=== PATIENT | female | born 1990 | race Caucasian/White ===

== ENCOUNTER 2022-09-23 10:21 | Outpatient (OUT) | payer MEDICARE, SELFPAY ==
[2022-09-23 10:46] LABS: Basophils Percent Auto 0.1 % (0.2-2.0); Eosinophils Absolute Auto 0.1 10^3/uL (0.0-0.7); Eosinophils Percent Auto 0.6 % (0.9-7.0); Hematocrit 43.1 % (36.0-48.0); Hemoglobin 13.6 g/dL (12.0-16.0); Immature Granulocytes Abs Auto 0.03 10^3/uL (0.00-0.03); Immature Granulocytes Pct Auto 0.3 % (0.0-0.5); Lymphocytes Absolute Auto 2.2 10^3/uL (1.2-3.8); Mean Corpuscular HGB Conc 31.6 g/dL (29.9-35.2); Mean Corpuscular Volume 85.5 fL (81.0-99.0); Mean Platelet Volume 9.9 fL (9.5-13.5); Monocytes Absolute Auto 0.6 10^3/uL (0.3-0.8); Monocytes Percent Auto 6.4 % (1.7-12.0); Neutrophils Absolute Auto 5.7 10^3/uL (1.4-6.5); Neutrophils Percent Auto 66.6 % (43.0-75.0); Platelet Count 309 10^3/uL (150-450); Red Blood Count 5.04 10^6/uL (4.20-5.40); Red Cell Distribution Width 13.5 % (11.0-15.0); White Blood Count 8.6 10^3/uL (4.0-11.0)
[2022-09-23 13:06] LABS: Alanine Aminotransferase 41 U/L (14-59); Albumin Globulin Ratio 0.9; Albumin Level 4.1 g/dL (3.4-5.0); Alkaline Phosphatase 75 U/L (46-116); Anion Gap 12.9; Aspartate Amino Transferase 26 U/L (15-37); BUN Creatinine Ratio 9.7; Bilirubin Total 0.8 mg/dL (0.2-1.0); Calcium 9.3 mg/dL (8.5-10.1); Carbon Dioxide 24.7 mmol/L (21.0-32.0); Chloride 104 mmol/L (98-107); Chol HDL Ratio 2.6; Cholesterol 97 mg/dL (<=200); Estimated GFR (African America >60 (>=60); Estimated GFR (Non-African Ame 56 (>=60); Free T3 2.42 pg/mL (2.18-3.98); Globulin 4.5 g/dL; Glucose 103 mg/dL (74-106); HDL Cholesterol 37 mg/dL (40-60); Potassium 3.6 mmol/L (3.5-5.1); Sodium 138 mmol/L (136-145); Thyroid Stimulating Hormone 4.147 uIU/mL (0.358-3.740); Total Protein 8.6 g/dL (6.4-8.2); Triglycerides 44 mg/dL (<=150); VLDL CHOLESTEROL 8.8 mg/dL
[2022-09-23 15:32] LABS: Estimated Average Glucose 108 mg/dL; Glycohemoglobin A1C 5.4 % (4.5-6.2)
[2022-09-24 12:09] LABS: Insulin 31.7 uIU/mL (2.6-24.9)
== END 2022-09-23 10:22 | disposition home or self-care (01) ==
LOC: LAB 10:23
PROVIDERS: PCP Family Medicine; Visit Provider Family Medicine
DX: Z00.00 Encounter for general adult medical examination without abnormal findings (principal)
CPT/HCPCS: 36415; 80053; 80061; 83036; 83525; 84436; 84443; 84481; 85025

== ENCOUNTER 2024-07-02 08:17 | Outpatient (RCR) | payer MEDICARE, MEDICAID, SELFPAY ==
[2024-07-02 09:48] LABS: HCG Quantitative 13837 mIU/mL
== END 2024-07-07 09:54 | disposition home or self-care (01) ==
LOC: LAB 08:17
PROVIDERS: PCP Family Medicine; Visit Provider Obstetrics & Gynecology
DX: N92.6 Irregular menstruation, unspecified (principal)
CPT/HCPCS: 36415; 84702

== ENCOUNTER 2024-07-02 14:54 | Outpatient (OUT) | payer MEDICARE, MEDICAID, SELFPAY ==
--- NOTE | 2024-07-02 15:00 | US_ITS ---
The [address] [address] Patient Name: LUIS ALBERTO VANCE MRN: [id number] date: 1990 Sex: F Assigned Patient Location: [place] Current Patient Location: Accession/Order Number: [id number] Exam Date: 07/05/2024 12:24 Report Date: 07/05/2024 12:30 At the request of: TERI MORA DO Procedure: US OB cervical length OB ultrasound. Reason for exam: Anatomy scan. COMPARISON: None. TECHNIQUE: Transabdominal imaging of the gravid uterus was obtained. FINDINGS: Single live intrauterine measuring 35 weeks 6 days by anatomic measurements YOLA is 07/31/2024. heart rate 1 30 bpm. Estimated weight is 2527 g. LAITH is normal at 18.31 cm. Placenta position is posterior without focal abnormality. Cervix measures 3.5 cm without funneling. A small amount of fluid is seen within the cervical canal. Anatomy evaluation is limited due to advanced age. The brain structures were not able to be visualized.. RVOT/LVOT was not visualized. Four-chamber heart is noted. Spine appears grossly intact. Three-vessel cord is noted. Kidneys appear unremarkable. 4 extremities are seen. Nasal bone is present. US/US OB anatomy IMPRESSION: Suboptimal anatomy scan due to advanced age. Please note that the brain structures as well as the outflow tracts of the heart not able to be visualized. Single live intrauterine 35 weeks 6 days by anatomic measurements YOLA 07/31/2024. Normal LAITH. Cervical length measures 3.5 cm without funneling. Impression dictated by: Rodger Worthington Jr., D.O. 07/05/2024 12:30 PM Dictation Location: [place] [address] Electronically authenticated by: [id number] Y Date: 07/05/2024 12:30
--- NOTE | 2024-07-02 15:09 | US_ITS ---
The [address] [address] Patient Name: LUIS ALBERTO VANCE MRN: [id number] date: 1990 Sex: F Assigned Patient Location: [place] Current Patient Location: Accession/Order Number: [id number] Exam Date: 07/05/2024 12:24 Report Date: 07/05/2024 12:30 At the request of: TERI MORA DO Procedure: US OB cervical length OB ultrasound. Reason for exam: Anatomy scan. COMPARISON: None. TECHNIQUE: Transabdominal imaging of the gravid uterus was obtained. FINDINGS: Single live intrauterine measuring 35 weeks 6 days by anatomic measurements YOLA is 07/31/2024. heart rate 1 30 bpm. Estimated weight is 2527 g. LAITH is normal at 18.31 cm. Placenta position is posterior without focal abnormality. Cervix measures 3.5 cm without funneling. A small amount of fluid is seen within the cervical canal. Anatomy evaluation is limited due to advanced age. The brain structures were not able to be visualized.. RVOT/LVOT was not visualized. Four-chamber heart is noted. Spine appears grossly intact. Three-vessel cord is noted. Kidneys appear unremarkable. 4 extremities are seen. Nasal bone is present. US/US OB cervical length IMPRESSION: Suboptimal anatomy scan due to advanced age. Please note that the brain structures as well as the outflow tracts of the heart not able to be visualized. Single live intrauterine 35 weeks 6 days by anatomic measurements YOLA 07/31/2024. Normal LAITH. Cervical length measures 3.5 cm without funneling. Impression dictated by: Rodger Worthington Jr., D.O. 07/05/2024 12:30 PM Dictation Location: [place] [address] Electronically authenticated by: [id number] Y Date: 07/05/2024 12:30
== END 2024-07-02 14:55 | disposition home or self-care (01) ==
LOC: US 14:55
PROVIDERS: PCP Family Medicine; Visit Provider Obstetrics & Gynecology
DX: Z36.89 Encounter for other specified antenatal screening (principal); Z3A.35 35 weeks gestation of pregnancy; N92.6 Irregular menstruation, unspecified
CPT/HCPCS: 76805; 76817

== ENCOUNTER 2024-07-12 07:34 | Outpatient (OUT) | payer MEDICARE, MEDICAID, SELFPAY ==
[2024-07-12 08:17] LABS: Basophils Percent Auto 0.1 % (0.2-2.0); Hemoglobin 12.4 g/dL (12.0-16.0); Immature Granulocytes Abs Auto 0.08 10^3/uL (0.00-0.03); Immature Granulocytes Pct Auto 0.6 % (0.0-0.5); Lymphocytes Absolute Auto 2.3 10^3/uL (1.2-3.8); Lymphocytes Percent Auto 18.5 % (20.5-60.0); Mean Corpuscular HGB Conc 32.6 g/dL (29.9-35.2); Mean Corpuscular Hemoglobin 27.4 pg (26.7-34.0); Mean Corpuscular Volume 83.9 fL (81.0-99.0); Mean Platelet Volume 11.6 fL (9.5-13.5); Monocytes Absolute Auto 0.7 10^3/uL (0.3-0.8); Monocytes Percent Auto 5.5 % (1.7-12.0); Neutrophils Absolute Auto 9.5 10^3/uL (1.4-6.5); Neutrophils Percent Auto 75.3 % (43.0-75.0); Platelet Count 250 10^3/uL (150-450); Red Blood Count 4.53 10^6/uL (4.20-5.40); Red Cell Distribution Width 13.8 % (11.0-15.0); White Blood Count 12.6 10^3/uL (4.0-11.0)
[2024-07-12 08:24] LABS: Estimated Average Glucose 123 mg/dL; Glycohemoglobin A1C 5.9 % (4.5-6.2)
[2024-07-12 08:34] LABS: Amphetamine Screen Urine NEGATIVE (NEGATIVE); Benzodiazepines Screen Urine NEGATIVE (NEGATIVE); Cannabinoid Screen Urine NEGATIVE (NEGATIVE); Cocaine Screen Urine NEGATIVE (NEGATIVE); Methadone Screen Urine NEGATIVE (NEGATIVE); Methamphetamines Screen Urine NEGATIVE (NEGATIVE); Opiate Screen Urine NEGATIVE (NEGATIVE); Phencyclidine Screen Urine NEGATIVE (NEGATIVE); Tricyclic Antidepressant Urine NEGATIVE (NEGATIVE)
[2024-07-12 08:35] LABS: Barbiturates Screen Urine NEGATIVE (NEGATIVE); Buprenorphine Screen Urine NEGATIVE (NEGATIVE); Oxycodone Screen Urine NEGATIVE (NEGATIVE)
[2024-07-12 09:41] LABS: Thyroid Stimulating Hormone 4.812 uIU/mL (0.358-3.740)
[2024-07-13 05:07] LABS: HIV Ab/p24 Ag Screen Non Reactive (Non Reactive)
[2024-07-13 06:12] LABS: HBsAg Screen Negative (Negative); HCV Ab Non Reactive (Non Reactive)
[2024-07-13 07:07] LABS: Rubella Antibodies, IgG 5.99 index (Immune >0.99)
[2024-07-13 11:13] LABS: Rapid Plasma Reagin, Quant Non Reactive titer (NonRea<1:1)
== END 2024-07-12 07:35 | disposition home or self-care (01) ==
LOC: LAB 07:36
PROVIDERS: PCP Family Medicine; Visit Provider Obstetrics & Gynecology
DX: Z34.01 Encounter for supervision of normal first pregnancy, first trimester (principal); N92.6 Irregular menstruation, unspecified; R82.998 Other abnormal findings in urine
CPT/HCPCS: 36415; 80307; 83036; 84443; 85025; 86592; 86762; 86803; 86850; 86900; 86901; 87086; 87340; 87389

== ENCOUNTER 2024-07-13 13:23 | Outpatient (REF) | payer MEDICARE, MEDICAID, SELFPAY | END 2024-07-13 13:24 | disposition home or self-care (01) | LOC: LAB 13:23 | PROVIDERS: PCP Family Medicine; Visit Provider Obstetrics & Gynecology | DX: Z34.93 Encounter for supervision of normal pregnancy, unspecified, third trimester (principal); Z3A.36 36 weeks gestation of pregnancy; O09.33 Supervision of pregnancy with insufficient antenatal care, third trimester | CPT/HCPCS: 87081 ==

== ENCOUNTER 2024-07-15 13:00 | Outpatient (OUT) | payer MEDICARE, MEDICAID, SELFPAY ==
--- NOTE | 2024-07-15 | US_ITS ---
[address] [address] Patient Name: LUIS ALBERTO VANCE MRN: [facility]:[id number] date: 1990 Sex: F Assigned Patient Location: [facility] Current Patient Location: [facility] Accession/Order Number: [id number] Exam Date: 07/15/2024 14:26 Report Date: 07/15/2024 14:26 At the request of: TERI MORA DO Procedure: US OB BPP w non-stress Biophysical profile. Reason for exam: Late care. COMPARISON: None. TECHNIQUE: Transabdominal imaging of the gravid uterus was obtained. FINDINGS: [employer] reports a BPP of 8 out of 8. LAITH is normal at 13 cm. heart rate 171 bpm. US/US OB BPP w non-stress IMPRESSION: BPP 8 out of 8. Impression dictated by: Rodger Worthington Jr., DPrasanthOPrasanth 07/15/2024 2:26 PM Dictation Location: [facility] Electronically authenticated by: [id number] Y Date: 07/15/2024 14:26
[2024-07-15 13:32] VITALS: BP 122/87; PULSE 114
== END 2024-07-15 14:30 | disposition home or self-care (01) ==
LOC: US 13:01 → FBC 13:02
PROVIDERS: PCP Family Medicine; Visit Provider Obstetrics & Gynecology
DX: O09.33 Supervision of pregnancy with insufficient antenatal care, third trimester (principal)
CPT/HCPCS: 76818

== ENCOUNTER 2024-07-18 05:04 | Inpatient (IN) | payer MEDICARE, MEDICAID, SELFPAY ==
[2024-07-18] VITALS (51 sets, daily range): BP systolic 111–150; BP diastolic 61–87; PULSE 70–121; TEMP 36.4–36.7
--- OUTSIDE RECORDS SUMMARY | 2024-07-18 05:08 | XMS_ITS | CCD ---
Author Organization [facility] Care Team Providers Care Human Resources Department Supervisor Name Role Phone SEBASTIAN Rader, DR CLAROS Primary Care Unavailable CARMELO ., DR ARGUELLES Consulting Vishnu RHODES ., DR ARGUELLES Attending Vishnu RHODES ., DR ARGUELLES Admitting Hyacinth Spring MD Primary Care Provider [phone] Hyacinth Cortes MD Primary Care Provider [phone] TERI SNEED Attending Unavailable TERI SNEED Attending Unavailable Allergies Allergy Classification Reported Allergen(s) Allergy Type Date of Onset Reaction(s) Facility (1 source) Latex Drug allergy (disorder) [facility] Medications Current Medications Medication Drug Class(es) Dates Sig (Normalized) Sig (Original) Blood Glucose Monitoring Suppl (D-Care Glucometer) w/Device kit (4 sources) Start: 07-13-2024 End: 07-13-2025 Blood Glucose Monitoring Suppl (D-Care Glucometer) w/Device kit Indications: Gestational diabetes mellitus (GDM), antepartum, gestational diabetes method of control unspecified , Elevated glucose tolerance test 1 kit Daily Use four times daily to check FSBS. In the morning prior to breakfast & 1 hour after each meal for a total of 4times daily. 1 kit 07/13/2024 07/13/2025 Active buprenorphine 8 mg / naloxone 2 mg sublingual tablet (3 sources) Partial Opioid Agonist, Opioid Antagonist Start: 09-06-2022 End: 11-17-2023 buprenorphine-nalo xone (Suboxone) 8-2 MG SL tablet DISSOLVE 2 TABLETS UNDER THE TONGUE ONCE DAILY 09/06/2022 11/17/2023 Discontinued desogestrel 0.15 mg / ethinyl estradiol 0.03 mg oral tablet (6 sources) Progestin, Estrogen Start: 11-17-2023 End: 07-09-2024 take 1 tablet by mouth once daily, then take 1 tablet by mouth once daily desogestrel-ethiny l estradiol (Apri) 0.15-30 MG-MCG tablet Indications: control counseling Take 1 tablet by mouth Daily for 28 days Take 1 tablet by mouth daily 28 tablet 11 11/17/2023 07/09/2024 Discontinued (Other) Ethinyl Estradiol / Ferrous fumarate / Norethindrone (3 sources) Estrogen Start: 09-30-2022 End: 11-17-2023 norethindrone-ethi nyl estradiol (03/29) 1-20 MG-MCG tablet Indications: control counseling Take 1 tablet by mouth in the morning. 28 tablet 09/30/2022 11/17/2023 Discontinued Start: 09-30-2022 norethindrone- ethinyl estradiol (03/29) 1-20 MG-MCG tablet Indications: control counseling Take 1 tablet by mouth in the morning. 28 tablet 09/30/2022 Active isopropyl alcohol 0.7 ml/ml medicated pad (4 sources) Start: 07-13-2024 Alcohol Swabs (Alcohol Prep Pad) 70 % pads Indications: Gestational diabetes mellitus (GDM), antepartum, gestational diabetes method of control unspecified , Elevated glucose tolerance test Apply 1 Pad topically Daily Use four times daily to check FSBS. 150 each 3 07/13/2024 Active levothyroxine sodium 0.025 mg oral tablet (4 sources) l-Thyroxine Start: 07-13-2024 End: 07-13-2025 take 1 tablet by mouth before mealtime levothyroxine (Synthroid) 25 MCG tablet Indications: Thyroid disease (CMS/HCC) Take 1 tablet (25 mcg) by mouth in the morning. Take before meals. 30 tablet 11 07/13/2024 07/13/2025 Active QUEtiapine 50 mg oral tablet (3 sources) Atypical Antipsychotic Start: 02-22-2022 End: 11-17-2023 take 1 tablet by mouth at bedtime QUEtiapine (SEROquel) 50 MG tablet Take 50 mg by mouth at bedtime. 02/22/2022 11/17/2023 Discontinued Problems Problem Classification Problem Date Documented Date Episodic/Chronic Contraceptive and procreative management (3 sources) Patient encounter status; Translations: [Encounter for other general counseling and advice on contraception] 11-17-2023 Episodic Immunizations and screening for infectious disease (3 sources) Encounter for screening for human papillomavirus (HPV); Translations: [Exposure to sexually transmissible disorder] Onset: 07-21-2022 07-13-2024 Episodic Menstrual disorders (1 source) Missed period; Translations: [Irregular menstruation, unspecified] 07-09-2024 Chronic Other complications of (2 sources) Late entry into care; Translations: [Supervision of with insufficient care, third trimester] 07-13-2024 Episodic Other and delivery including normal (5 sources) Third trimester ; Translations: [Encounter for supervision of normal , unspecified, third trimester] 07-09-2024 Episodic Other screening for suspected conditions (not mental disorders or infectious disease) (4 sources) Encounter for screening for malignant neoplasm of cervix; Translations: [ENC SCREENING MALIG NEOPLASM CERV] Onset: 07-19-2022 Episodic Residual codes; unclassified (3 sources) Gestation period, 36 weeks; Translations: [36 weeks gestation of ] 07-09-2024 Episodic Results Test Name Value Interpretation Reference Range Facility US OB BPP W NON-STRESS on 07-15-2024 [place] [address] Ultrasound Report Signed Patient: LUIS ALBERTO VANCE MR#: [id number] : 1990 Acct:[id number] Age/Sex: 34 / F ADM Date: 07/15/24 Loc: [facility] 250-[address]: Teri Sneed D.O. Ordering Physician: Teri Sneed D.O. Date of Service: 07/15/24 Procedure(s): US OB BPP w non-stress Accession Number(s): [id number] cc: Teri Sneed D.O.; Hyacinth Cortes M.D. [address] [address] Patient Name: LUIS ALBERTO VANCE MRN: [id number] date: 1990 Sex: F Assigned Patient Location: [facility] Current Patient Location: [facility] Accession/Order Number: [id number] Exam Date: 07/15/2024 14:26 Report Date: 07/15/2024 14:26 At the request of: TERI SNEED DO Procedure: US OB BPP w non-stress Biophysical profile. Reason for exam: Late care. COMPARISON: None. TECHNIQUE: Transabdominal imaging of the gravid uterus was obtained. FINDINGS: [employer] reports a BPP of 8 out of 8. LAITH is normal at 13 cm. heart rate 171 bpm. US/US OB BPP w non-stress IMPRESSION: BPP 8 out of 8. Impression dictated by: Rodger Worthington Jr., D.O. 07/15/2024 2:26 PM Dictation Location: [place] [address] Electronically authenticated by: [id number] Y Date: 07/15/2024 14:26 Dictated By: Rodger Worthington M.D. Signed By: 07/15/24 1429 DD/ 1426 TD/TT: Core Feeder: [facility] Radiology, Radiologist, MD - 07/15/2024 [place] [address] Ultrasound Report Signed Patient: LUIS ALBERTO VANCE MR#: [id number] : 1990 Acct:[id number] Age/Sex: 34 / F ADM Date: 07/15/24 Loc: [place] [address]- Attending Dr: Teri Sneed D.O. Ordering Physician: Teri Sneed D.O. Date of Service: 07/15/24 Procedure(s): US OB BPP w non-stress Accession Number(s): [id number] cc: Teri Sneed D.O.; Hyacinth Cortes M.D. The [address] [address] Patient Name: LUIS ALBERTO VANCE MRN: [facility]:[id number] date: 1990 Sex: F Assigned Patient Location: [facility] Current Patient Location: [facility] Accession/Order Number: [id number] Exam Date: 07/15/2024 14:26 Report Date: 07/15/2024 14:26 At the request of: TERI SNEED DO Procedure: US OB BPP w non-stress Biophysical profile. Reason for exam: Late care. COMPARISON: None. TECHNIQUE: Transabdominal imaging of the gravid uterus was obtained. FINDINGS: [employer] reports a BPP of 8 out of 8. LAITH is normal at 13 cm. heart rate 171 bpm. US/US OB BPP w non-stress IMPRESSION: BPP 8 out of 8. Impression dictated by: Rodger Worthington Jr., D.O. 07/15/2024 2:26 PM Dictation Location: [place] [address] Electronically authenticated by: [id number] Y Date: 07/15/2024 14:26 Dictated By: Rodger Worthington M.D. Signed By: 07/15/24 1429 DD/ 1426 TD/TT: Core Feeder: [facility] Radiology Study observation (narrative) [facility] US OB BPP W NON-STRESS Ordered By: Radiologist Radiology on 07-15-2024 [facility] Work Phone: RECURRENT VAGINITIS (HTRX)on 07-14-2024 ATOPOBIUM VAGINAE 0 [facility] ATOPOBIUM VAGINAE Not detected [facility] BVAB 2,3 (BACTERIAL VAGINOSIS ASSOCIATED BACTERIA 2, 3); MOBILUNCUS SPP 0 [facility] BVAB 2,3 (BACTERIAL VAGINOSIS ASSOCIATED BACTERIA 2, 3); MOBILUNCUS SPP Not detected [facility] CHANDNI ALBICANS, PARAPSILOSIS, TROPICALIS 0 [facility] Healthcare CHANDNI ALBICANS, PARAPSILOSIS, TROPICALIS Not detected [facility] Healthcare CHANDNI GLABRATA 0 [facility] CHANDNI GLABRATA Not detected [facility] CHANDNI KRUSEI 0 [facility] CHANDNI KRUSEI Not detected [facility] CHLAMYDIA TRACHOMATIS 0 [facility] CHLAMYDIA TRACHOMATIS Not detected [facility] GARDNERELLA VAGINALIS 0 [facility] GARDNERELLA VAGINALIS Not detected [facility] MEGASPHAERA (TYPES 1, 2) 0 [facility] MEGASPHAERA (TYPES 1, 2) Not detected [facility] MYCOPLASMA GENITALIUM 0 [facility] MYCOPLASMA GENITALIUM Not detected [facility] NEISSERIA GONORRHOEAE 0 [facility] NEISSERIA GONORRHOEAE Not detected [facility] TRICHOMONAS VAGINALIS 0 [facility] TRICHOMONAS VAGINALIS Not detected N [facility] Urinalysis macro (dipstick) panel (U)on 07-13-2024 Bilirubin, UA Positive Negative - 4(70) +++ mg/dL [facility] Comment on above: small Blood, UA Negative Negative - 50 Myron/mcL [facility] Clarity, UA Clear [facility] Color, UA Yellow [facility] Glucose, UA Negative Negative - 2000(110) ++++ mg/dL [facility] Interpretation and review of laboratory results Abnormal [facility] Ketones, UA Negative Negative - 160(16) ++++ mg/dL [facility] Leukocytes, UA Trace Negative - 500+++ Harshad/mcL [facility] Nitrite, UA Negative Negative - Positive [facility] pH, UA 6 5 - 9 [facility] Protein, UA Positive Negative - 2000(20) ++++ mg/dL [facility] Comment on above: 30mg/dL Spec Grav, UA 1.02 1 - 1.03 [facility] Urobilinogen, UA 1.0 0.2 - 12 mg/dL [facility] ALL CBC WITH AUTO DIFFon BASOPHILS ABSOLUTE AUTO 0 N [facility] Basophils/100 WBC (Bld) 0.1 % Low 0.2 - 2.0 % [facility] Eosinophils/100 WBC (Bld) 0 % Low 0.9 - 7.0 % [facility] Erythrocyte distribution width (RBC) [Ratio] 13.8 % 11.0 - 15.0 % [facility] Hematocrit (Bld) [Volume fraction] 38 % 36.0 - 48.0 % [facility] Hemoglobin (Bld) [Mass/Vol] 12.4 g/dL 12.0 - 16.0 g/dL [facility] IMMATURE GRANULOCYTES ABS AUTO 0.08 High [facility] Immature granulocytes/100 WBC (Bld) 0.6 % High 0.0 - 0.5 % [facility] Interpretation and review of laboratory results Abnormal [facility] LYMPHOCYTES ABSOLUTE AUTO 2.3 [facility] Lymphocytes/100 WBC (Bld) 18.5 % Low 20.5 - 60.0 % [facility] MCH (RBC) [Entitic mass] 27.4 pg 26.7 - 34.0 pg [facility] MCHC (RBC) [Mass/Vol] 32.6 g/dL 29.9 - 35.2 g/dL [facility] MCV (RBC) [Entitic vol] 83.9 fL 81.0 - 99.0 fL [facility] MONOCYTES ABSOLUTE AUTO 0.7 N [facility] Monocytes/100 WBC (Bld) 5.5 % 1.7 - 12.0 % [facility] NEUTROPHILS ABSOLUTE AUTO 9.5 High [facility] Neutrophils/100 WBC (Bld) 75.3 % High 43.0 - 75.0 % [facility] Platelet mean volume (Bld) [Entitic vol] 11.6 fL 9.5 - 13.5 fL [facility] 0 [facility] TB PLT 250 [facility] RBC 4.53 [facility] WBC 12.6 High [facility] HCG ( test) Ql (U)o n 07-09-2024 Interpretation and review of laboratory results Abnormal [facility] Preg Test, Ur Positive Negative [facility] Urinalysis macro (dipstick) panel (U)on 07-09-2024 Bilirubin, UA Negative Negative - 4(70) +++ mg/dL [facility] Blood, UA Negative Negative - 50 Myron/mcL [facility] Clarity, UA Clear [facility] Color, UA Yellow [facility] Glucose, UA Negative Negative - 1999(110) ++++ mg/dL [facility] Interpretation and review of laboratory results Abnormal [facility] Ketones, UA Negative Negative - 160(16) ++++ mg/dL [facility] Leukocytes, UA Negative Negative - 500+++ Harshad/mcL [facility] Nitrite, UA Negative Negative - Positive [facility] pH, UA 6.5 5 - 9 [facility] Protein, UA Negative Negative - 1999(20) ++++ mg/dL [facility] Spec Grav, UA 1.025 1 - 1.03 [facility] Urobilinogen, UA 1.0 0.2 - 12 mg/dL [facility] No Panel InformationOrdered By: Radiologist Radiology on 07-05-2024 [facility] Work Phone: No Panel Informationon 07-05 Radiology Study observation (narrative) [facility] US OB ANATOMYon 07-05-[address] [address] Ultrasound Report Signed Patient: LUIS ALBERTO VANCE MR#: [id number] : 1990 Acct:[id number] Age/Sex: 33 / F ADM Date: 07/02/24 Loc: US Attending Dr: Teri Sneed D.O. Ordering Physician: Teri Sneed D.O. Date of Service: 07/02/24 Procedure(s): US OB anatomy Accession Number(s): [id number] cc: Teri Sneed D.O.; Hyacinth Cortes M.D. [address] [address] Patient Name: LUIS ALBERTO VANCE MRN: [id number] date: 1990 Sex: F Assigned Patient Location: US Current Patient Location: Accession/Order Number: [id number] Exam Date: 07/05/2024 12:24 Report Date: 07/05/2024 12:30 At the request of: TERI SNEED DO Procedure: US OB cervical length OB ultrasound. Reason for exam: Anatomy scan. COMPARISON: None. TECHNIQUE: Transabdominal imaging of the gravid uterus was obtained. FINDINGS: Single live intrauterine measuring 35 weeks 6 days by anatomic measurements YOLA is 07/31/2024. heart rate 1 30 bpm. Estimated weight is 2527 g. LAITH is normal at 18.31 cm. Placenta position is posterior without focal abnormality. Cervix measures 3.5 cm without funneling. A small amount of fluid is seen within the cervical canal. Anatomy evaluation is limited due to advanced age. The brain structures were not able to be visualized.. RVOT/LVOT was not visualized. Four-chamber heart is noted. Spine appears grossly intact. Three-vessel cord is noted. Kidneys appear unremarkable. 4 extremities are seen. Nasal bone is present. US/US OB anatomy IMPRESSION: Suboptimal anatomy scan due to advanced age. Please note that the brain structures as well as the outflow tracts of the heart not able to be visualized. Single live intrauterine 35 weeks 6 days by anatomic measurements YOLA 07/31/2024. Normal LAITH. Cervical length measures 3.5 cm without funneling. Impression dictated by: Rodger Worthington Jr., D.O. 07/05/2024 12:30 PM Dictation Location: [place] [address] Electronically authenticated by: [id number] Y Date: 07/05/2024 12:30 Dictated By: Rodger Worthington M.D. Signed By: 07/05/24 1233 DD/ 1230 TD/TT: Core Feeder: [facility] Radiology, Radiologist, MD - 07/05/2024 [place] [address] Ultrasound Report Signed Patient: LUIS ALBERTO VANCE MR#: [id number] : 1990 Acct:[id number] Age/Sex: 33 / F ADM Date: 07/02/24 Loc: US Attending Dr: Teri Sneed D.O. Ordering Physician: Teri Sneed D.O. Date of Service: 07/02/24 Procedure(s): US OB anatomy Accession Number(s): [id number] cc: Teri Sneed D.O.; Hyacinth Cortes M.D. The [place] [address] Patient Name: LUIS ALBERTO VANCE MRN: [facility]:[id number] date: 1990 Sex: F Assigned Patient Location: Current Patient Location: Accession/Order Number: [id number] Exam Date: 07/05/2024 12:24 Report Date: 07/05/2024 12:30 At the request of: TERI SNEED DO Procedure: US OB cervical length OB ultrasound. Reason for exam: Anatomy scan. COMPARISON: None. TECHNIQUE: Transabdominal imaging of the gravid uterus was obtained. FINDINGS: Single live intrauterine measuring 35 weeks 6 days by anatomic measurements YOLA is 07/31/2024. heart rate 1 30 bpm. Estimated weight is 2527 g. LAITH is normal at 18.31 cm. Placenta position is posterior without focal abnormality. Cervix measures 3.5 cm without funneling. A small amount of fluid is seen within the cervical canal. Anatomy evaluation is limited due to advanced age. The brain structures were not able to be visualized.. RVOT/LVOT was not visualized. Four-chamber heart is noted. Spine appears grossly intact. Three-vessel cord is noted. Kidneys appear unremarkable. 4 extremities are seen. Nasal bone is present. US/US OB anatomy IMPRESSION: Suboptimal anatomy scan due to advanced age. Please note that the brain structures as well as the outflow tracts of the heart not able to be visualized. Single live intrauterine 35 weeks 6 days by anatomic measurements YOLA 07/31/2024. Normal LAITH. Cervical length measures 3.5 cm without funneling. Impression dictated by: Rodger Worthington Jr., D.O. 07/05/2024 12:30 PM Dictation Location: [place] [address] Electronically authenticated by: [id number] Y Date: 07/05/2024 12:30 Dictated By: Rodger Worthington M.D. Signed By: 07/05/24 1233 DD/ 1230 TD/TT: Core Feeder: [facility] US OB CERVICAL LENGTHon 06-09 [place] [address] Ultrasound Report Signed Patient: LUIS ALBERTO VANCE MR#: [id number] : 1990 Acct:[id number] Age/Sex: 33 / F ADM Date: 07/02/24 Loc: US Attending Dr: Teri Sneed D.O. Ordering Physician: Teri Sneed D.O. Date of Service: 07/02/24 Procedure(s): US OB cervical length Accession Number(s): [id number] cc: Teri Sneed D.O.; Hyacinth Cortes M.D. [address] [address] Patient Name: LUIS ALBERTO VANCE MRN: [id number] date: 1990 Sex: F Assigned Patient Location: US Current Patient Location: Accession/Order Number: [id number] Exam Date: 07/05/2024 12:24 Report Date: 07/05/2024 12:30 At the request of: TERI SNEED DO Procedure: US OB cervical length OB ultrasound. Reason for exam: Anatomy scan. COMPARISON: None. TECHNIQUE: Transabdominal imaging of the gravid uterus was obtained. FINDINGS: Single live intrauterine measuring 35 weeks 6 days by anatomic measurements YOLA is 07/31/2024. heart rate 1 30 bpm. Estimated weight is 2527 g. LAITH is normal at 18.31 cm. Placenta position is posterior without focal abnormality. Cervix measures 3.5 cm without funneling. A small amount of fluid is seen within the cervical canal. Anatomy evaluation is limited due to advanced age. The brain structures were not able to be visualized.. RVOT/LVOT was not visualized. Four-chamber heart is noted. Spine appears grossly intact. Three-vessel cord is noted. Kidneys appear unremarkable. 4 extremities are seen. Nasal bone is present. US/US OB cervical length IMPRESSION: Suboptimal anatomy scan due to advanced age. Please note that the brain structures as well as the outflow tracts of the heart not able to be visualized. Single live intrauterine 35 weeks 6 days by anatomic measurements YOLA 07/31/2024. Normal LAITH. Cervical length measures 3.5 cm without funneling. Impression dictated by: Rodger Worthington Jr., D.O. 07/05/2024 12:30 PM Dictation Location: [place] [address] Electronically authenticated by: [id number] Y Date: 07/05/2024 12:30 Dictated By: Rodger Worthington M.D. Signed By: 07/05/24 1233 DD/ 1230 TD/TT: Core Feeder: [facility] Radiology, Radiologist, - 07/05/2024 [place] [address] Ultrasound Report Signed Patient: LUIS ALBERTO VANCE MR#: [id number] : 1990 Acct:[id number] Age/Sex: 33 / F ADM Date: 07/02/24 Loc: US Attending Dr: Teri Sneed D.O. Ordering Physician: Teri Sneed D.O. Date of Service: 07/02/24 Procedure(s): US OB cervical length Accession Number(s): [id number] cc: Teri Sneed D.O.; Hyacinth Cortes M.D. [place] [address] Patient Name: LUIS ALBERTO VANCE MRN: [id number] date: 1990 Sex: F Assigned Patient Location: Current Patient Location: Accession/Order Number: [id number] Exam Date: 07/05/2024 12:24 Report Date: 07/05/2024 12:30 At the request of: TERI SNEED DO Procedure: US OB cervical length OB ultrasound. Reason for exam: Anatomy scan. COMPARISON: None. TECHNIQUE: Transabdominal imaging of the gravid uterus was obtained. FINDINGS: Single live intrauterine measuring 35 weeks 6 days by anatomic measurements YOLA is 07/31/2024. heart rate 1 30 bpm. Estimated weight is 2527 g. LAITH is normal at 18.31 cm. Placenta position is posterior without focal abnormality. Cervix measures 3.5 cm without funneling. A small amount of fluid is seen within the cervical canal. Anatomy evaluation is limited due to advanced age. The brain structures were not able to be visualized.. RVOT/LVOT was not visualized. Four-chamber heart is noted. Spine appears grossly intact. Three-vessel cord is noted. Kidneys appear unremarkable. 4 extremities are seen. Nasal bone is present. US/US OB cervical length IMPRESSION: Suboptimal anatomy scan due to advanced age. Please note that the brain structures as well as the outflow tracts of the heart not able to be visualized. Single live intrauterine 35 weeks 6 days by anatomic measurements YOLA 07/31/2024. Normal LAITH. Cervical length measures 3.5 cm without funneling. Impression dictated by: Rodger Worthington Jr., D.O. 07/05/2024 12:30 PM [facility]ictation [facility] Electron[facility] authenticated by: [id number] Y Date: 07/05/2024 12:30 Dictated By: Rodger Worthington M.D. Signed By: 07/05/24 1233 DD/ 1230 TD/TT: Core Feeder: [facility] PREG QUANT HCGon 07-02- 025 HCG QUANTITATIVE 14242 mIU/mL [facility] Comment on above: 5-50 0.2-1 WEEK 50-500 1-2 WEEKS 100-5,000 2-3 WEEKS 500-10,000 3-4 WEEKS 1,000-50,000 4-5 WEEKS 10,000-100,000 5-6 WEEKS 15,000-200,000 6-8 WEEKS 10,000-100,000 2-3 MON[facility] Vital Signs Date Time Vital Sign Value Performing Clinician Faci lity 07-13-2024 09:31-0400 Body mass index (BMI) [Ratio] 31.24 kg/m2 Teri Naren DO Work Phone: [facility] 07-13-2024 09:31-0400 Body weight 98.77 kg Teri Naren DO Work Phone: [facility] 07-13-2024 09:31-0400 Diastolic blood pressure 86 mm[Hg] Teri Naren DO Work Phone: [facility] 07-13-2024 09:31-0400 Systolic blood pressure 122 mm[Hg] Teri Naren DO Work Phone: [facility] 07-09-2024 11:48-0400 Body mass index (BMI) [Ratio] 30.72 kg/m2 [facility] Nurse [facility] 07-09-2024 11:48-0400 Body weight 97.12 kg [facility] Nurse [facility] 11-17-2023 10:56-0400 Body height 177.8 cm Teri Naren DO Work Phone: [facility] 11-17-2023 10:56-0400 Body mass index (BMI) [Ratio] 28.55 kg/m2 Teri Naren DO Work Phone: [facility] 11-17-2023 10:56-0400 Body weight 90.27 kg Teri Naren DO Work Phone: [facility] 11-17-2023 10:56-0400 Diastolic blood pressure 76 mm[Hg] Teri Naren DO Work Phone: [facility] 11-17-2023 10:56-0400 Systolic blood pressure 108 mm[Hg] Teri Naren DO Work Phone: [facility] Encounters Encounter Date Encounter Type Care Provider Facility Start: 07-15-2024 End: 07-15-2024 [facility] Result Encounter Teri Naren DO Work Phone: [facility] Unsolicited Start: 07-15-2024 End: 07-15-2024 [facility] Result Encounter Teri Naren DO Work Phone: [facility] Unsolicited Start: 07-13-2024 End: 07-14-2024 External Result Encounter Teri Naren DO Work Phone: [facility] Unsolicited Start: 07-13-2024 End: 07-14-2024 External Result Encounter Teri Naren DO Work Phone: [facility] Unsolicited Start: 07-13-2024 End: 07-13-2024 Office outpatient visit 15 minutes Teri Naren DO Work Phone: [facility] Comment on above: GA: 37w3d Start: 07-13-2024 End: 07-13-2024 ambulatory TERI NAREN Not Available Start: 07-12-2024 End: 07-12-2024 [facility] Result Encounter Teri Naren DO Work Phone: [facility] Unsolicited Start: 07-12-2024 End: 07-12-2024 Clinisync Result Encounter Teri Narne DO Work Phone: [facility] Unsolicited Start: 07-09-2024 End: 07-09-2024 Office outpatient visit 5 minutes [facility] Naren Nurse [facility] Comment on above: GA: 36w6d Start: 07-09-2024 End: 07-09-2024 ambulatory TERI NAREN Not Available Start: 07-05-2024 End: 07-05-2024 Clinisync Result Encounter Teri Naren DO Work Phone: [facility] Unsolicited Start: 07-05-2024 End: 07-05-2024 Clinisync Result Encounter Teri Naren DO Work Phone: [facility] Unsolicited Start: 07-02-2024 End: 07-02-2024 Clinisync Result Encounter Teri Naren DO Work Phone: [facility] Unsolicited Start: 07-02-2024 End: 07-02-2024 Clinisync Result Encounter Teri Naren DO Work Phone: [facility] Unsolicited Start: 11-17-2023 End: 11-17-2023 Bamboo flowsheet Teri Naren DO Work Phone: [facility] Start: 11-17-2023 End: 11-17-2023 Bamboo flowsheet Teri Naren DO Work Phone: [facility] Start: 11-17-2023 End: 11-17-2023 ambulatory TERI NAREN Not Available Start: 11-17-2023 End: 11-17-2023 Office outpatient visit 15 minutes Teri Naren DO Work Phone: [facility] Comment on above: control counse ling Start: 07-19-2022 End: 07-19-[address] HYACINTH CORTES . Facility: Procedures Date Procedure Procedure Detail Performing Clinician Start: 07-15-2024 OB BPP W NON-STRESS Teri Naren DO Work Phone: Start: 07-13-2024 RECURRENT VAGINITIS (HTRX) Teri Naren DO Work Phone: Start: 07-13-2024 Urnls dip stick/tabl et rgnt non-auto w/o micrscp Teri Naren DO Work Phone: Start: 07-12-2024 ALL CBC WITH AUTO DIFF Teri Naren DO Work Phone: Start: 07-09-2024 Urnls dip stick/tabl et rgnt non-auto w/o micrscp Teri Naren DO Work Phone: Start: 07-05-2024 US OB ANATOMY Teri Ruslan io DO Work Phone: Start: 07-05-2024 US OB CERVICAL LENGTH C orey Naren DO Work Phone: Start: 07-02-2024 [facility] PREG QUANT HCG Core y Naren DO Work Phone: Plan of Treatment Date Care Activity Detail Author Start: 11-08-2024 Influenza vaccination Influenz a Vaccine (Season Ended) [facility] Start: 07-29-2024 End: 07-29-2024 ambulatory 07/29/2024 1:00 PM EDT Initial [facility] [address] [place] [address] [facility] Start: 07-29-2024 End: 07-29-2024 Professional / ancillary services management 07/29/2024 12:30 PM EDT Ancillary Procedure [facility] [address] [place] [address] [facility] Start: 07-13-2024 End: 07-13-2025 CULTURE, GROUP B STREP WITH SUSCEPTIBLITY CULTURE, GROUP B STREP WITH SUSCEPTIBLITY Lab Routine 36 weeks gestation of Third trimester Late care affecting in third trimester Expected: 07/13/2024, Expires: 07/13/2025 [facility] Comment on above: Expected: 07/13/2024 , Expires: 07/13/2025 Start: 07-13-2024 End: 01-13-2025 US biophysical profile w non stress test US biophysical profile w non stress test Imaging Routine Late care affecting in third trimester Expected: 07/13/2024 (Approximate), Expires: 01/13/2025 [facility] Work Phone: Comment on above: Expected: 07/13/2024 (Approximate), Expires: 01/13/2025 Start: 07-13-2024 End: 07-13-2024 ambulatory 07/13/2024 9:00 AM EDT Initial [facility] [address] [place] [address] Teri Sneed, [address] [place] [address] [facility] Start: 07-09-2024 End: 07-09-2025 ABO/Rh ABO/Rh Lab Routine Missed menses , unspecified gestational age Expected: 07/09/2024 (Approximate), Expires: 07/09/2025 [facility] Comment on above: Expected: 07/09/2024 (Approximate), Expires: 07/09/2025 Start: 07-09-2024 End: 07-09-2025 Blood type and Indirect antibody screen panel - Blood Type and screen Lab Routine Missed menses , unspecified gestational age Expected: 07/09/2024 (Approximate), Expires: 07/09/2025 [facility] Work Phone: Comment on above: Expected: 07/09/2024 (Approximate), Expires: 07/09/2025 Start: 07-09-2024 End: 07-09-2025 Drugs of abuse panel - Urine by Screen method Rapid drug screen, urine Lab Routine , unspecified gestational age Encounter for supervision of normal first in first trimester Expected: 07/09/2024 (Approximate), Expires: 07/09/2025 [facility] Comment on above: Expected: 07/09/2024 (Approximate), Expires: 07/09/2025 Start: 11-09-2023 Influenza vaccination Influenza Vacc ine (#1) [facility] Start: 2020 Screening for malign ant neoplasm of cervix [facility] Start: 07-11-2011 Screening for malign ant neoplasm of cervix Pap Smear [facility] Bacteria identified in Urine by Culture Urine culture Microbiology Routine Missed menses Ordered: 07/09/2024 [facility] Comment on above: Ordered: 07/09/2024 CBC W Auto Different ial panel - Blood CBC and differential Lab Routine Missed menses , unspecified gestational age Ordered: 07/09/2024 [facility] Comment on above: Ordered: 07/09/2024 CHLAMYDIA TRACHOMATI S (GENITO/STI) CHLAMYDIA TRACHOMATIS (GENITO/STI) Lab Routine 36 weeks gestation of STD exposure Ordered: 07/13/2024 [facility] Comment on above: Ordered: 07/13/2024 Hemoglobin A1c/Hemoglobin.total in Blood Hemoglobin A1c Lab Routine Missed menses , unspecified gestational age Ordered: 07/09/2024 [facility] Comment on above: Ordered: 07/09/2024 Hepatitis B virus surface Ag [Presence] in Serum or Plasma by Immunoassay Hepatitis B surface antigen Lab Routine Missed menses , unspecified gestational age Ordered: 07/09/2024 [facility] Comment on above: Ordered: 07/09/2024 Hepatitis C virus Ab [Presence] in Serum or Plasma by Immunoassay Hepatitis C antibody Lab Routine Missed menses , unspecified gestational age Ordered: 07/09/2024 [facility] Comment on above: Ordered: 07/09/2024 HIV-1/HIV-2 antigen/antibody combination immunoassay HIV-1 and HIV-2 antibodies Lab Routine Missed menses , unspecified gestational age Ordered: 07/09/2024 [facility] Comment on above: Ordered: 07/09/2024 Neisseria gonorrhoea e DNA [Presence] in Unspecified specimen by SADAF with probe detection Neisseria gonorrhea DNA probe, direct Lab Routine 36 weeks gestation of STD exposure Ordered: 07/13/2024 [facility] Comment on above: Ordered: 07/13/2024 Reagin Ab [Presence] in Serum by RPR RPR Lab Routine Missed menses , unspecified gestational age Ordered: 07/09/2024 [facility] Comment on above: Ordered: 07/09/2024 Rubella antibody, IgG Rubella an tibody, IgG Lab Routine Missed menses , unspecified gestational age Ordered: 07/09/2024 [facility] Comment on above: Ordered: 07/09/2024 SURESWAB(R) ADVANCED VAGINITIS PLUS, TMA SURESWAB(R) ADVANCED VAGINITIS PLUS, TMA Pathology and Cytology Routine 36 weeks gestation of STD exposure Ordered: 07/13/2024 [facility] Work Phone: Comment on above: Ordered: 07/13/2024 Thyrotropin [Units/volume] in Serum or Plasma TSH Lab Routine Missed menses Ordered: 07/09/2024 [facility] Comment on above: Ordered: 07/09/2024 Payers Date Payer Category Payer Medicaid [place]ICAID [place] [id number] 2024 Medicaid [id number] 2021 Medicare ANTH MEDICARE ADVANTAGE [facility] MEDICARE ADVANTAGE [id number] 2021-Present [address] [id number] 2021 Medicare (Managed Care) [facility] Member Subscriber Plan / Payer (Effective 2021-Present) Name: Luis Alberto Vance Relation to Subscriber: Self Name: Luis Alberto Vance Payer ID: Not on file Group ID: [id number] Type: Not on file Address: [address] [id number] 1990 Unknown [id number] 1990 Unknown [id number] 1990 Unknown [id number] 1990 Unknown [id number] 1959 Unknown [id number] Social History Date Type Detail Facility Start: 08-21-2022 Tobacco smoking stat us NHIS Never smoked tobacco [facility] Start: 08-21-2022 Tobacco use and exposure Smoke less tobacco non-user [facility] Start: 09-30-2022 End: 07-09-2024 Alcoholic beverage intake Lifetime non-drinker (finding) [facility] Start: 09-30-2022 End: 11-17-2023 History of Social function [facility] Start: 09-30-2022 End: 11-17-2023 Tobacco use panel [facility] Start: 1990 Sex assigned at Not on file [facility] Start: 11-08-2023 [facility] Medical Equipment Procedure Code Equipment Code Equipment Origin al Text Equipment Identifier Dates 1 strip by In Vi tro route Daily Use in the morning prior to breakfast, 1 hour after each meal for a total of 4times daily. [id number] Start: 07-13-2024 End: 08-12-2024 1 each by In Vit ro route Daily Use to check FSBS four times daily [id number] Start: 07-13-2024 End: 08-12-2024 History of Present illness Narrative 07-13-2024 Lavern Schultz, [employer] - 07/13/2024 9:00 AM EDT Note Date & Type Note Facility 07-13-2024 History of Presen t illness Narrative Reason for Appointment: Patient ID: Luis Alberto Vance is a 34 y.o. female who presents for Routine Visit Patient presents today for Return OB appointment. MEDICATIONS Current Outpatient Medications Medication Instructions Alcohol Swabs (Alcohol Prep Pad) 70 % pads 1 Pad, Topical, Daily, Use four times daily to check FSBS. Blood Glucose Monitoring Suppl (D-Care Glucometer) w/Device kit 1 kit, Does not apply, Daily, Use four times daily to check FSBS. In the morning prior to breakfast & 1 hour after each meal for a total of 4times daily. Glucose Blood (Blood Glucose Test) strip 1 strip, In Vitro, Daily, Use in the morning prior to breakfast, 1 hour after each meal for a total of 4times daily. Lancets Ultra Thin misc 1 each, In Vitro, Daily, Use to check FSBS four times daily levothyroxine (SYNTHROID) 25 mcg, Oral, Daily before breakfast ALLERGIES No Known Allergies PROBLEMS Active Ambulatory Problems Diagnosis Date Noted No Active Ambulatory Problems Resolved Ambulatory Problems Diagnosis Date Noted No Resolved Ambulatory Problems Past Medical History: Diagnosis Date Atypical squamous cells of undetermined significance (ASC-US) on cervical Pap smear BMI 30.0-30.9,adult Encounter for gynecological examination (general) (routine) without abnormal findings Encounter for surveillance of Nexplanon subdermal contraceptive Gestational diabetes H/O opioid abuse History of stillbirth 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 Pap smear to confirm normal after abnormal result HISTORY PAST MEDICAL HISTORY SOCIAL HISTORY Past Medical History: Diagnosis Date Atypical squamous cells of undetermined significance (ASC-US) on cervical Pap smear BMI 30.0-30.9,adult Encounter for gynecological examination (general) (routine) without abnormal findings Encounter for surveillance of Nexplanon subdermal contraceptive Gestational diabetes H/O opioid abuse History of stillbirth 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 HENT: Negative. Eyes: Negative. Respiratory: Negative. Cardiovascular: Negative. Gastrointestinal: Negative. Genitourinary: Negative. Musculoskeletal: Negative. Skin: Negative. Neurological: Negative. All other systems reviewed and are negative. Hematological: Negative. Endocrine: Negative. Allergic/Immunologic: Negative. OBJECTIVE Objective: Physical Exam Constitutional: Appearance: Normal appearance. She is well-developed. Genitourinary: Vulva normal. Cardiovascular: Rate and Rhythm: Normal rate and regular rhythm. Pulmonary: Effort: Pulmonary effort is normal. Breath sounds: Normal breath sounds. Abdominal: General: Bowel sounds are normal. There is no distension. Palpations: Abdomen is soft. Tenderness: There is no abdominal tenderness. There is no guarding or rebound. Musculoskeletal: General: No swelling. Normal range of motion. Right lower leg: No edema. Left lower leg: No edema. Neurological: Mental Status: She is alert and oriented to person, place, and time. Skin: General: Skin is warm and dry. Psychiatric: Mood and Affect: Mood normal. Behavior: Behavior normal. Vitals and nursing note reviewed. Exam conducted with a foreign language teacher present. Vitals: Estimated body mass index is 31.24 kg/m as calculated from the following: Height as of 24: 5' 10 . Weight as of this encounter: 217 lb 12 oz. BP: 122/86 No LMP recorded. Patient is . ASSESSMENT & PLAN ICD-10-CM 1. 36 weeks gestation of Z3A.36 SURESWAB(R) ADVANCED VAGINITIS PLUS, TMA CHLAMYDIA TRACHOMATIS (GENITO/STI) Neisseria gonorrhea DNA probe, direct 2. Third trimester Z34.93 CULTURE, GROUP B STREP WITH SUSCEPTIBLITY 3. STD exposure Z20.2 SURESWAB(R) ADVANCED VAGINITIS PLUS, TMA CHLAMYDIA TRACHOMATIS (GENITO/STI) Neisseria gonorrhea DNA probe, direct Patient is doing well but has complaints of being tired and having maternal discomfort due to . Patient verbalized frequent movement and was instructed to perform kick counts three times per day. labor precautions were given, LARC consent was signed/declined, and GBS and cultures was obtained. Cervical check was performed and patient is 2cm dilated. Pt to be delivered at 38 weeks with extensive history. Pt signed induction consents. Pt to have NST/BPP at 10 am. Pt to report to [facility] for induction 0500 for pitocin on 07/18/24. Orders Placed This Encounter Procedures CULTURE, GROUP B STREP WITH SUSCEPTIBLITY CHLAMYDIA TRACHOMATIS (GENITO/STI) Neisseria gonorrhea DNA probe, direct Follow Up: Patient is to return to office in 1 week for routine OB appointment Documented by Lavern Schultz LPN on behalf of: Teri Sneed DO documented in this encounter [facility] History of Present illness Narrative 07-09-2024 Ila Menjivar LPN - 07/09/2024 11:00 AM EDT Note Date & Type Note Facility 07-09-2024 History of Presen t illness Narrative Reason for Appointment: Patient ID: Luis Alberto Vance is a 33 y.o. female who presents for Routine Visit Patient presents today for a Nurse OB Intake appointment. Patient is 36w6d with a Estimated Date of Delivery: 07/31/24 OB History Para Term AB Living 3 1 SAB IAB Ectopic Multiple Live Births # Outcome Date GA Lbr Flip/2nd Weight Sex Type Anes PTL Lv 3 Current 2 05/03/17 7 lb 10 oz M Vag-Spont 1 07/22/13 1 lb 10 oz M Vag-Spont FD Complications: History of IUFD Current Medications: currently has no medications in their medication list. 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 Weight as of this encounter: 214 lb 1.9 oz. BP: No LMP recorded. Patient is . Assessment/Plan Diagnoses and all orders for this visit: Third trimester 36 weeks gestation of Missed menses - Type and screen; Future - ABO/Rh; Future - CBC and differential - Hemoglobin A1c - RPR - Rubella antibody, IgG - Hepatitis B surface antigen - Hepatitis C antibody - HIV-1 and HIV-2 antibodies - Urine culture - POCT , urine manually resulted - POCT urinalysis dipstick manually resulted - TSH , unspecified gestational age - Type and screen; Future - ABO/Rh; Future - CBC and differential - Hemoglobin A1c - RPR - Rubella antibody, IgG - Hepatitis B surface antigen - Hepatitis C antibody - HIV-1 and HIV-2 antibodies - Rapid drug screen, urine; Future Encounter for supervision of normal first in first trimester - Rapid drug screen, urine; Future control counseling Nurse Note: OB Intake: Patient presents today for first OB visit. Patients history has been reviewed in great detail including any potential risks. Patient signed consent forms and patient desires testing in both trimesters. Patient currently has no complaints and has been advised to drink 6-8 glasses of water a day, eat no raw or undercooked meat, and stay away from [facility]. Patient has also been advised to not change litter boxes and eat 6 small meals a day. Patient has been consulted regarding the do's and don'ts of . Patient was given labs and all questions and concerns were answered. Follow Up: Patient is to return in 4 weeks for routine OB appointment. Follow Up: Patient is to have labs drawn at directed and return to office for initial OB appointment with provider. Patient may call office as needed with any concerns or questions. Nurse Visit Completed by: Ila Menjivar LPN documented in this encounter [facility] History of Present illness Narrative 11-17-2023 May Braxton LPN - 11/17/2023 10:40 AM EDT Note Date & Type Note Facility 11-17-2023 History of Presen t illness Narrative Reason for Appointment: Patient ID: Luis Alberto Vance is a 33 y.o. female who presents for Contraception Patient presents today for Consult appointment. MEDICATIONS Current Outpatient Medications Medication Instructions desogestrel-ethinyl estradiol (Apri) 0.15-30 MG-MCG tablet 1 tablet, Oral, Daily, Take 1 tablet by mouth daily ALLERGIES No Known Allergies PROBLEMS Active Ambulatory Problems Diagnosis Date Noted No Active Ambulatory Problems Resolved Ambulatory Problems Diagnosis Date Noted No Resolved Ambulatory Problems Past Medical History: Diagnosis Date Atypical squamous cells of undetermined significance (ASC-US) on cervical Pap smear BMI 30.0-30.9,adult Encounter for gynecological examination (general) (routine) without abnormal findings Encounter for surveillance of Nexplanon subdermal contraceptive Gestational diabetes H/O opioid abuse (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 OBJECTIVE Objective: Physical Exam Constitutional: Appearance: Normal appearance. She is well-developed. Cardiovascular: Rate and Rhythm: Normal rate and regular rhythm. Pulmonary: Effort: Pulmonary effort is normal. Breath sounds: Normal breath sounds. Abdominal: General: Bowel sounds are normal. There is no distension. Palpations: Abdomen is soft. Tenderness: There is no abdominal tenderness. There is no guarding or rebound. Musculoskeletal: General: No swelling. Normal range of motion. Right lower leg: No edema. Left lower leg: No edema. Neurological: Mental Status: She is alert and oriented to person, place, and time. Skin: General: Skin is warm and dry. Psychiatric: Mood and Affect: Mood normal. Behavior: Behavior normal. Vitals and nursing note reviewed. Exam conducted with a foreign language teacher present. Vitals: Estimated body mass index is 28.55 kg/m as calculated from the following: Height as of this encounter: 5' 10 . Weight as of this encounter: 199 lb. BP: 108/76 Patient's last menstrual period was 10/17/2023. ASSESSMENT & PLAN ICD-10-CM 1. control counseling Z30.09 desogestrel-ethinyl estradiol (Apri) 0.15-30 MG-MCG tablet Patient and spouse present to office for control consult. Discussed all options and patient would like to have Apri sent to pharmacy at this time and consider Mirena IUD. Clerical to pre-cert IUD and patient will call office for insertion. Patient to return to clinic for annual appointment and follow up as needed. Documented by May Braxton LPN on behalf of: Teri Sneed DO documented in this encounter [facility] Evaluation note Note Date & Type Note Facility Evaluation note Diagnosis control counseling documented in this encounter [facility] Evaluation note Note Date & Type Note Facility Evaluation note Diagnosis Third trimester state, incidental 36 weeks gestation of Missed menses , unspecified gestational age Encounter for supervision of normal first in first trimester control counseling documented in this encounter [facility] Evaluation note Note Date & Type Note Facility Evaluation note Diagnosis 36 weeks gestation of Third trimester state, incidental STD exposure Late care affecting in third trimester documented in this encounter [facility] Summary Purpose Family History No Family History Records FoundNo Family History Records Found Advance Directives No Advanced Directives Records FoundNo Advanced Directives Records Found Additional Source Comments INFORMATION SOURCE (unrecogn ized section and content) DATE CREATED AUTHOR 07/22/2022 [facility] DATE CREATED AUTHOR AUTHOR'S ORGANIZ ATION 07/14/2024 [facility] Care Teams (unrecognized sec tion and content) Human Resources Department Supervisor Relationship Specialty Start Date End Date Hyacinth Cortes MD [address] [place] [address] PCP - General Family Medicine 09/30/22 Human Resources Department Supervisor Relationship Specialty Start Date End Date Hyacinth Cortes MD [address] [place] [address] PCP - General Family Medicine 09/30/22 Human Resources Department Supervisor Relationship Specialty Start Date End Date Hyacinth Cortes MD [address] [place] [address] PCP - General Family Medicine 09/30/22 Human Resources Department Supervisor Relationship Specialty Start Date End Date Hyacinth Cortse MD [address] [place] [address] PCP - General Family Medicine 09/30/22 Human Resources Department Supervisor Relationship Specialty Start [place] [address] [place] [id number] PCP - General Family Medicine 09/30/22 Human Resources Department Supervisor Relationship Specialty Start Date End Date Hyacinth Cortes MD PCP - General Family Medicine 09/30/22 Human Resources Department Supervisor Relationship Specialty Start Date End Date Hyacinth Cortes MD PCP - General Family Medicine 09/30/22 Reason for Visit (unrecogniz ed section and content) Reason Comments Contraception Reason Comments Routine Visit FOR RECORDS PERTAINING TO PATIENTS WHO ARE OR HAVE BEEN ENROLLED IN A CHEMICAL DEPENDENCY/SUBSTANCEABUSE PROGRAM, SOME INFORMATION MAY BE OMITTED. This clinical summary was aggregated from multiple sources. Caution should be exercised in using it in the provision of clinical care. This summary normalizes information from multiple sources, and as a consequence, information in this document may materially change the coding, format and clinical context of patient data. In addition, data may be omitted in some cases. CLINICAL DECISIONS SHOULD BE BASED ON THE PRIMARY CLINICAL RECORDS. [employer] [facility]. provides no warranty or guarantee of the accuracy or completeness of information in this document.
[2024-07-18 05:45] LABS: Hematocrit 37.3 % (36.0-48.0); Hemoglobin 12.1 g/dL (12.0-16.0); Mean Corpuscular HGB Conc 32.4 g/dL (29.9-35.2); Mean Corpuscular Hemoglobin 26.8 pg (26.7-34.0); Mean Corpuscular Volume 82.5 fL (81.0-99.0); Mean Platelet Volume 12.1 fL (9.5-13.5); Platelet Count 232 10^3/uL (150-450); Red Blood Count 4.52 10^6/uL (4.20-5.40); White Blood Count 10.7 10^3/uL (4.0-11.0)
[2024-07-18] MEDS: 0.9 % SODIUM CHLORIDE 1,000 ML 125 ML IV (05:58)
[2024-07-18] MEDS: AMPICILLIN SODIUM 2,000 MG in 0.9 % SODIUM CHLORIDE 100 ML 200 MG IV (06:00)
[2024-07-18] MEDS: OXYTOCIN/0.9 % SODIUM CHLORIDE 10 UNITS/500 ML PLAST..BAG 6 UNIT IV (06:00)
[2024-07-18 06:03] LABS: Amphetamine Screen Urine NEGATIVE (NEGATIVE); Barbiturates Screen Urine NEGATIVE (NEGATIVE); Benzodiazepines Screen Urine NEGATIVE (NEGATIVE); Buprenorphine Screen Urine NEGATIVE (NEGATIVE); Cannabinoid Screen Urine NEGATIVE (NEGATIVE); Cocaine Screen Urine NEGATIVE (NEGATIVE); Methadone Screen Urine NEGATIVE (NEGATIVE); Methamphetamines Screen Urine NEGATIVE (NEGATIVE); Opiate Screen Urine NEGATIVE (NEGATIVE); Oxycodone Screen Urine NEGATIVE (NEGATIVE); Phencyclidine Screen Urine NEGATIVE (NEGATIVE); Tricyclic Antidepressant Urine NEGATIVE (NEGATIVE)
[2024-07-18] MEDS: AMPICILLIN SODIUM 1,000 MG in 0.9 % SODIUM CHLORIDE 50 ML 100 MG IV ×2 (11:29→14:51)
[2024-07-18] MEDS: 0.9 % SODIUM CHLORIDE 1,000 ML 1000 ML IV (11:57)
[2024-07-18] MEDS: ROPIVACAINE HCL/PF 400 MG/200 ML PREMIX 6 MG EPIDURAL (12:15)
[2024-07-18] MEDS: OXYTOCIN/0.9 % SODIUM CHLORIDE 20 UNITS/1,000 ML PLAST..BAG 125 UNIT IV (16:30)
--- NOTE | 2024-07-18 16:44 | PM.OBPRCVD ---
Procedure Intrapartal events: None Induction method: per pitocin protocol Delivery augmentation: rupture of membranes and pitocin Delivery monitor: external FHT and external uterine Route of delivery: Episiotomy Description: none L&D Laceration Description: perineal - 1st degree Delivery repair: Vicryl Estimated blood loss (mL): 350 Anesthesia type: Open to Epidural but wants to try to do without Disposition: floor Infant Delivery date: 07/18/24 Gender: male presentation: vertex Placental delivery description: Spontaneous cord description: 3 Vessels and Nuchal Cord
[2024-07-18] MEDS: BENZOCAINE/MENTHOL 85 GRAM SPRAY BOTTLE 1 APPLIC TOPICAL (19:17)
[2024-07-18] MEDS: GLYCERIN/WITCH HAZEL PADS 1 PAD TOPICAL (19:17)
[2024-07-18] MEDS: IBUPROFEN 600 MG TABLET PO (20:40)
[2024-07-19] MEDS: IBUPROFEN 600 MG TABLET PO ×2 (04:12→10:37)
[2024-07-19 04:15] VITALS: BP 116/65; PULSE 56; TEMP 36.7
[2024-07-19 06:19] LABS: Basophils Percent Auto 0.1 % (0.2-2.0); Hematocrit 32.8 % (36.0-48.0); Hemoglobin 10.7 g/dL (12.0-16.0); Immature Granulocytes Abs Auto 0.06 10^3/uL (0.00-0.03); Immature Granulocytes Pct Auto 0.5 % (0.0-0.5); Lymphocytes Absolute Auto 2.2 10^3/uL (1.2-3.8); Lymphocytes Percent Auto 16.9 % (20.5-60.0); Mean Corpuscular HGB Conc 32.6 g/dL (29.9-35.2); Mean Corpuscular Hemoglobin 27.8 pg (26.7-34.0); Mean Corpuscular Volume 85.2 fL (81.0-99.0); Monocytes Absolute Auto 0.7 10^3/uL (0.3-0.8); Monocytes Percent Auto 5.2 % (1.7-12.0); Neutrophils Percent Auto 77.3 % (43.0-75.0); Platelet Count 180 10^3/uL (150-450); Red Blood Count 3.85 10^6/uL (4.20-5.40); Red Cell Distribution Width 14.1 % (11.0-15.0); White Blood Count 12.9 10^3/uL (4.0-11.0)
--- NOTE | 2024-07-19 07:42 | W.PC.ACHO ---
Registration Status: ADM IN Primary Language: [place] Preferred Language: [place] Report given to [facility]. Care relinquished at 0715. Active Medications Generic Name Dose Route Start Last Admin Trade Name Freq PRN Reason Stop Dose Admin Acetaminophen 650 mg 07/18/24 16:45 Acetaminophen 325 Mg Tablet PO Q6H PRN Mild Pain Al Hydroxide/Mg Hydroxide 2,400 mg 07/18/24 16:45 Magnesium Hydroxide 2,400 Mg/10 Ml Oral.Susp PO Q6H PRN Dyspepsia Benzocaine/Menthol 1 applic 07/18/24 16:45 07/18/24 19:17 Benzocaine/Menthol 85 Gram [place] Bottle TOPICAL 1 applic Q2H PRN Administration Pain Carboprost Tromethamine 250 mcg 07/18/24 05:08 Carboprost Tromethamine 250 Mcg/Ml 1 Ml Vial IM 07/20/24 05:09 Q15M PRN Bleeding Diphtheria/Pertussis/Tetanus Vacc 0.5 ml 07/20/24 09:00 Adacel Diph,Pertuss(Acell),Tet Vac/Pf 0.5 Ml Adult Syringe IM 07/20/24 09:01 .ONCE ONE Docusate Sodium 100 mg 07/19/24 09:00 Docusate Sodium 100 Mg Capsule PO BID RAQUEL Tranexamic Acid 1,000 mg/ 110 mls @ 440 mls/hr 07/18/24 05:08 Sodium Chloride IV 07/20/24 05:09 ONCE PRN Uterine Bleeding Sodium Chloride 1,000 mls @ 125 mls/hr 07/18/24 05:30 07/18/24 05:58 Sodium Chloride 0.9% 1,000 Ml IV 125 mls/hr .Q8H RAQUEL Administration Oxytocin/Sodium Chloride 10 units in 500 mls @ 6 mls/hr 07/18/24 05:45 07/18/24 18:25 Pitocin 10 Unit/500 Ml-Ns IV Infused TITR RAQUEL Infusion Protocol 2 MILLIUNIT/MIN Ropivacaine/Sodium Chloride 400 mg in 200 mls @ 6 mls/hr 07/18/24 07:30 07/18/24 17:00 Naropin 0.2% 400 Mg/200 Ml Bag EPIDURAL Infused Q24H RAQUEL Infusion Ampicillin 1,000 mg/ Sodium 50 mls @ 100 mls/hr 07/18/24 11:00 07/18/24 15:21 Chloride IV Infused Q4H RAQUEL Infusion Ibuprofen 600 mg 07/18/24 16:45 07/19/24 04:12 Ibuprofen 600 Mg Tablet PO 600 mg Q6H PRN Administration Moderate Pain Lidocaine 5 ml 07/18/24 05:14 Lidocaine Viscous 2% 15 Ml Solution TOPICAL 07/20/24 05:14 ONCE PRN Pain Lidocaine 1 ml 07/18/24 05:14 Lidocaine Hcl 1% 200 Mg/20 Ml Mdv INJ 07/20/24 05:14 ONCE PRN Pain Measles/Mumps/Rubella Vaccine Live 0.5 ml 07/20/24 09:00 Measles,Mumps,Rubella Vacc/Pf 0.5 Ml Vial SQ 07/20/24 09:01 .ONCE ONE Methylergonovine Maleate 0.2 mg 07/18/24 05:08 Methylergonovine Maleate 0.2 Mg/Ml Ampule IM 07/20/24 05:09 ONCE PRN Uterine Contractility/Contract Methylergonovine Maleate 0.2 mg 07/18/24 05:08 Methylergonovine Maleate 0.2 Mg Tablet PO 07/20/24 05:09 Q4H PRN Uterine Contractility/Contract Misoprostol 600 mcg 07/18/24 05:08 Misoprostol 100 Mcg Tablet PO 07/20/24 05:09 ONCE PRN Uterine Bleeding Misoprostol 800 mcg 07/18/24 05:08 Misoprostol 100 Mcg Tablet SL 07/20/24 05:09 ONCE PRN Uterine Bleeding Misoprostol 1,000 mcg 07/18/24 05:08 Misoprostol [address] 07/20/24 05:09 ONCE PRN Uterine Bleeding Nalbuphine HCl 10 mg 07/18/24 05:08 Nalbuphine Hcl 10 Mg/Ml Ampule IV Q3H PRN Pain Scale 4-6 Ondansetron HCl 4 mg 07/18/24 05:08 Ondansetron Pf 4 Mg/2 Ml Vial IV Q6H PRN Nausea And Vomiting Ondansetron HCl 4 mg 07/18/24 05:08 Ondansetron 4 Mg Rapdis Tablet SL Q6H PRN Nausea And Vomiting Oxytocin 10 unit 07/18/24 05:08 Oxytocin 10 Unit/Ml Vial IM 07/20/24 05:09 ONCE PRN Bleeding Senna 17.2 mg 07/18/24 20:00 Sennosides 8.6 Mg Tablet PO QHS PRN Constipation Simethicone 80 mg 07/18/24 16:45 Simethicone 80 Mg Tab.Chew PO QID PRN Abdominal Distention Temazepam 15 mg 07/18/24 16:45 Temazepam 15 Mg Capsule PO QHS PRN Sleep Witch Adriana/Glycerin 1 pad 07/18/24 16:45 07/18/24 19:17 Glycerin/Witch Adriana Pads TOPICAL 1 pad Q2H PRN Administration Pain Diet Category Date Time Status Regular Consistency Diet Diet 07/18/24 16:45 Active Respiratory Oxygen Delivery Method Room Air Oxygen Delivery Method Room Air Cardiology Heart Sounds Strong,Regular Heart Sounds Strong,Regular Renal Bladder Pattern Continent Bladder Pattern Continent
[2024-07-19 08:44] VITALS: BP 114/68; PULSE 57
[2024-07-19] MEDS: DOCUSATE SODIUM 100 MG CAPSULE PO (08:45)
[2024-07-19 09:09] VITALS: TEMP 36.7
--- NOTE | 2024-07-19 12:04 | SWNOTE1 ---
SW consulted for late care and history of drug use. No concerns from nursing at this time. SW met with pt and pt's aunt in room. SW did ask about late care. Pt did not offer a reason as to why. SW did ask if she had transportation? She voiced she does. SW did ask if she will schedule follow ups for baby. She voiced yes. SW did ask if she has everything she needs for baby? She stated yes. SW asked if she had good support? She stated yes she does. SW did ask about history of drug use. Pt expressed that she has not used drugs in years. SW did ask about Suboxone/Subutex? She stated she is not on it anymore. When she was she got it online? Pt did not go in to further detail. SW did ask if she was discharged today? She stated she was and she will be going up to see baby. She spoke to NICU earlier and baby was doing alright, still some respiratory issues. SW did ask pt about employment. She stated she is on disability. She does not get WIC. At this time no further questions and pt voiced she does not need any resources. SW to follow as needed. Cord was sent out. SW to review cord results once they are in.
--- NOTE | 2024-07-19 12:13 | SWNOTE1 ---
SW did advise pt that a SW from [facility] will likely stop in room as well to make sure she has all resources that are needed. The father of the baby is not involved at this time.
== END 2024-07-19 12:45 | disposition home or self-care (01) | DRG 807 ==
PROVIDERS: Admitting Provider Obstetrics & Gynecology; PCP Family Medicine; Visit Provider Obstetrics & Gynecology
DX: O69.81X0 Labor and delivery complicated by cord around neck, without compression, not applicable or unspecified (principal); Z37.0 Single live birth; O70.0 First degree perineal laceration during delivery; Z3A.38 38 weeks gestation of pregnancy; Z23 Encounter for immunization
CPT/HCPCS: 36415; 51702; 59050; 59410; 80307; 85025; 85027; 86850; 86900; 86901; J0290; J2795